=== PATIENT | female | born 1970 | race Caucasian/White ===

== ENCOUNTER → 2017-02-10 | Outpatient (CLI) | payer SELFPAY ==
--- NOTE | 2017-02-11 13:43 | MM ---
Reason for exam: screening (asymptomatic). Last mammogram was performed 5 years ago. Physical Findings: A clinical breast exam by your physician is recommended on an annual basis and results should be correlated with mammographic findings. MG Screening Mammo w CAD Bilateral CC and MLO view(s) were taken. Prior study comparison: February 20, 2012, bilateral digital screening mammo w/CAD. The breast tissue is heterogeneously dense. This may lower the sensitivity of mammography. No significant changes when compared with prior studies. ASSESSMENT: Negative, BI-RAD 1 RECOMMENDATION: Routine screening mammogram of both breasts in 1 year.
== END | disposition home or self-care (01) ==
LOC: RADMAMWWP 11:08
PROVIDERS: ATTEND Family Medicine
DX: Z12.31 Encounter for screening mammogram for malignant neoplasm of breast (principal)

== ENCOUNTER → 2017-12-04 | Outpatient (CLI) | payer OTHER ==
--- NOTE | 2017-12-04 15:29 | MR ---
EXAMINATION TYPE: MR tspine/lspine wo/w con DATE OF EXAM: 12/04/2017 2:20 PM COMPARISON: NONE Contrast: Gadavist 6.5 cc HISTORY: Compression of Brain, Congenital malformation, pain Multiplanar MultiSpin echo imaging of the thoracic spine was performed. Pre and post contrast enhanc ed images are obtained. Disc spaces: No evidence for herniation protrusion or significant degenerative disc disease. Spinal canal: No evidence for canal stenosis. No intrinsic or extrinsic lesion. Thoracic spinal cord: Thoracic spinal cord is of normal caliber and signal. Paraspinal soft tissues: No evidence for paraspinal mass. No destructive lesions seen. Vertebral segments: No evidence for fracture or bony lesion. No pathologic enhancement is identified. IMPRESSION: Negative study EXAMINATION TYPE: MR tspine/lspine wo/w con DATE OF EXAM: 12/04/2017 2:20 PM COMPARISON: NONE HISTORY: Compression of Brain, Congenital malformation, pain CONTRAST: The patient was injected with 6.5 mL intravenous Gadavist gadolinium contrast. Multiplanar, MultiSpin echo imaging of the lumbar spine was performed. L1-L2: Normal disc appearance without desiccation. No herniation, protrusion or disc bulging. No ca nal stenosis is present. Foramina are patent bilaterally. L2-L3: Normal disc appearance without desiccation. No herniation, protrusion or disc bulging. No ca nal stenosis is present. Foramina are patent bilaterally. L3-L4: Moderate disc desiccation is noted. There is circumferential disc bulge greatest posteriorly w ith effacement of the ventral thecal sac. Borderline to mild bilateral lateral recess stenosis. No ev idence for central stenosis. Bilateral foraminal encroachment. Mild facet joint arthropathy. L4-L5: Mild disc desiccation. Mild circumferential disc bulge greatest posteriorly. No evidence for l ateral recess stenosis or central stenosis. Mild bilateral foraminal encroachment. L4 hemangioma. L5-S1: Normal disc appearance without desiccation. No herniation, protrusion or disc bulging. No ca nal stenosis is present. Foramina are patent bilaterally. Lumbar segments are intact. No paraspinal masses are identified. Conus medullaris has a normal appe arance. IMPRESSION: 1. Degenerative disc disease as discussed. 2. Posterior disc bulging at L3-4 with bilateral lateral recess stenosis and bilateral foraminal encr oachment.
--- NOTE | 2017-12-04 15:36 | MR ---
EXAMINATION TYPE: MR brain wo con DATE OF EXAM: 12/04/2017 2:01 PM COMPARISON: NONE HISTORY: Compression of Brain,Congenital malformation Multiplanar and multispin-echo imaging of the brain was performed . The ventricles, basal cisterns and sulci overlying the cerebral convexities are within normal limits. There is no evidence for midline shift or mass effect. Acute intracranial hemorrhage or extra-axial collection is not evident. The brain parenchyma reveals no abnormal increased signal. No acute edema is identified. Low-lying cerebellar tonsils of 7 mm. Chiari type I malformation is not excluded. No evidence for hyd rocephalus. Mucosal thickening maxillary sinuses with small air-fluid level seen on the left may reflect acute si nusitis. Chronic ethmoidal sinusitis also noted. IMPRESSION: 1. Low-lying cerebellar tonsils without hydrocephalus. Chiari Type I malformation is not excluded. 2. Sinusitis.
== END | disposition home or self-care (01) ==
LOC: RADMRIMAIN 12:47
PROVIDERS: ATTEND Neurological Surgery
DX: G93.5 Compression of brain (principal); M48.061 Spinal stenosis, lumbar region without neurogenic claudication; M51.36 Other intervertebral disc degeneration, lumbar region; Q07.9 Congenital malformation of nervous system, unspecified
CPT/HCPCS: 70551; 72157; 72158; A9581

== ENCOUNTER → 2019-04-06 | Outpatient (CLI) | payer OTHER ==
[2019-04-06 13:55] LABS: Potassium 4.2 mmol/L (3.5-5.1)
[2019-04-06 13:56] LABS: Basophils % (A) 0 %; Eosinophils # (A) 0.2 k/uL (0-0.7); Eosinophils % (A) 3 %; HGB 13.4 gm/dL (11.4-16.0); Lymphocytes # (A) 1.9 k/uL (1.0-4.8); Lymphocytes % (A) 32 %; MCH 30.3 pg (25.0-35.0); MCHC 32.7 g/dL (31.0-37.0); MCV 92.7 fL (80.0-100.0); Mean Platelet Volume 9.3; Monocytes # (A) 0.3 k/uL (0-1.0); Monocytes % (A) 5 %; Neutrophils # (A) 3.4 k/uL (1.3-7.7); Neutrophils % (A) 59 %; Platelet Count 160 k/uL (150-450); RBC 4.42 m/uL (3.80-5.40); RDW 13.5 % (11.5-15.5); WBC 5.8 k/uL (3.8-10.6)
== END | disposition home or self-care (01) ==
LOC: LABPAT 12:48
PROVIDERS: ATTEND Orthopaedic Surgery
DX: Z01.818 Encounter for other preprocedural examination (principal); Z01.812 Encounter for preprocedural laboratory examination; M23.91 Unspecified internal derangement of right knee
CPT/HCPCS: 36415; 80051; 85025; 93005

== ENCOUNTER 2019-04-08 13:42 | Day surgery (SDC) | payer OTHER ==
[2019-04-07 12:36] VITALS: BMI 25.7
--- NOTE | 2019-04-07 16:26 | HP ---
HISTORY AND PHYSICAL DATE OF SURGERY: 04/08/2019 Gaby Monzon is a 48-year-old patient seen with progressive right knee pain. We discussed options. She elected to proceed with arthroscopy. Consent was obtained. PAST MEDICAL HISTORY: 1. Hyperlipidemia. 2. Chronic low back pain. PAST SURGICAL HISTORY: section. DAILY MEDICATIONS: 1. Fioricet. 2. Morphine. 3. Neurontin. 4. [place]. 5. Zocor. ALLERGIES: ASPIRIN, LYRICA. SOCIAL HISTORY: She smokes one pack of cigarettes daily. PHYSICAL EVALUATION OF THE RIGHT KNEE: Her range of motion is 0 to 130 degrees. Mild effusion. Tenderness, medial joint line. Positive medial Dipti's. Ligaments stable. Hip rotation without pain. Distal neurovascular exam intact. RADIOGRAPHS: Right knee radiographs reveal mild osteoarthritis. MRI of right knee: Medial meniscal tear. IMPRESSION: Internal derangement, right knee, with medial meniscal tear. PLAN: Right knee arthroscopy with partial meniscectomy and debridement. MMODL / IJN: [id number] /
[~2019-04-08 13:42] MED LIST: ceFAZolin IN SWFI 2 GM/20 ML SYRINGE IVP ONE
[2019-04-08] MEDS ORDERED: LIDOCAINE 1% 20 ML VIAL (10MG/ML) FOR IV START INTRADERMA ONE (14:30)
[2019-04-08] MEDS ORDERED: LACTATED RINGERS 1,000 ML IV ONE (14:32)
[2019-04-08] MEDS ORDERED: ONDANSETRON 4 MG/2 ML VIAL IVP ONE (14:33)
[2019-04-08] MEDS ORDERED: DEXAMETHASONE SOD PHOS (MDV) 100 MG/10 ML VIAL IVP ONE (14:33)
[2019-04-08] MEDS ORDERED: MIDAZOLAM 2 MG/2 ML VIAL ONE (14:41)
[2019-04-08] MEDS ORDERED: LIDOCAINE 1% INJ 10MG/ML (20 ML MDV) ONE (14:41)
[2019-04-08] MEDS ORDERED: fentaNYL (PF) 50 MCG/ML 2 ML AMP ONE (14:41)
[2019-04-08] MEDS ORDERED: PROPOFOL 10 MG/ML 20 ML VIAL IV ONE (14:41)
[2019-04-08] MEDS ORDERED: BUPIVACAIN-EPI 0.5%-1:200,000 30 ML VIAL INTRAARTIC ONE ×2 (15:07→15:11)
[2019-04-08 15:31] VITALS: TEMP 96.8
--- NOTE | 2019-04-08 15:37 | P.OP ---
Date of Procedure: 04/08/19 Preoperative Diagnosis: Internal derangement right knee Postoperative Diagnosis: 1. Tear medial meniscus right knee 2. Grade 2 chondromalacia medial femoral condyle right knee 3. Reactive synovitis medial and super patellar compartments right knee Procedure(s) Performed: 1. Arthroscopic partial medial meniscectomy right knee 2. Arthroscopic chondroplasty medial femoral condyle right knee 3. Arthroscopic partial synovectomy medial and suprapatellar compartments right knee Anesthesia: ROSASA, local Surgeon: Herson Solis Estimated Blood Loss (ml): 3 Pathology: none sent Condition: stable Disposition: PACU Indications for Procedure: 48-year-old patient seen with right knee pain. We discussed treatment options. She elected to proceed with arthroscopy. Consent was obtained. Operative Findings: see description of procedure Description of Procedure: Patient was taken to the operative suite. Patient underwent a general anesthetic by the department of anesthesia. Patient was given preoperative antibiotics. The right lower extremity was placed in a well-padded arthroscopic leg yuan. The right leg was prepped and draped in the normal sterile orthopedic fashion. A lateral parapatellar and suprapatellar incision was made. Trochars were inserted. Arthroscopy was initiated. Suprapatellar pouch revealed diffuse thick reactive synovitis. The patellofemoral joint appeared to articulate congruently. There was grade 1 chondromalacia of the patella with no significant osteochondral tears present. The scope was guided into the medial gutter. No loose body or plica were identified. The scope was then guided into the medial compartment. A medial parapatellar incision was made. Trocar inserted followed by probe. There was a radial tear posterior horn medial meniscus. There were grade 2 chondromalacia changes medial femoral condyle with some osteochondral flap tears. There was thick reactive synovitis anteriorly. I performed a partial medial meniscectomy down to stable tissue. I performed a chondroplasty of the medial femoral condyle down to stable tissue. I performed a partial synovectomy decompressing the reactive synovitis. The residual meniscus was stable. The osteochondral surface was stable. There was good decompression of synovitis. Scope and probe were then guided into the intercondylar notch. Cruciates were identified, probed and found to be stable. The scope and probe were then guided into lateral compartment. Lateral meniscus was stable. There was no chondromalacia. There was no synovitis. The scope was in guided back into the suprapatellar compartment. I introduced a motorized shaver into the super patellar compartment. I performed a partial synovectomy decompressing the reactive synovitis. The shaver was removed. I took one more look on the entire knee, no residual debris. Instruments were now removed from the joint. The joint was infiltrated with .25% Marcaine. Steri-Strips were applied to the portal sites. Sterile dressings were applied. The patient was placed into a ANDRESSA hose. No tourniquet was utilized. The patient was awakened, transferred to a bed and taken to recovery stable satisfactory condition.
[2019-04-08 15:40] VITALS: RESP 16
[2019-04-08 17:07] VITALS: BP 105/64; PULSE 64
== END 2019-04-08 17:19 | disposition home or self-care (01) ==
LOC: OR 13:42
PROVIDERS: ATTEND Orthopaedic Surgery
DX: M23.321 Other meniscus derangements, posterior horn of medial meniscus, right knee (principal); M94.261 Chondromalacia, right knee; M65.861 Other synovitis and tenosynovitis, right lower leg; J44.9 Chronic obstructive pulmonary disease, unspecified; F17.210 Nicotine dependence, cigarettes, uncomplicated; G89.29 Other chronic pain; M54.9 Dorsalgia, unspecified; G93.5 Compression of brain; G43.909 Migraine, unspecified, not intractable, without status migrainosus; E07.9 Disorder of thyroid, unspecified; I34.1 Nonrheumatic mitral (valve) prolapse; Z79.891 Long term (current) use of opiate analgesic; Z88.6 Allergy status to analgesic agent; Z88.8 Allergy status to other drugs, medicaments and biological substances; Z79.899 Other long term (current) drug therapy
CPT/HCPCS: 29881; J2250; J2405; J2001; J3010; J1100; J2704; J0690

== ENCOUNTER 2021-05-30 18:40 | Inpatient (IN) | payer MEDICARE, OTHER ==
[2021-05-30 19:32] LABS: Basophils # (A) 0.1 k/uL (0-0.2); Basophils % (A) 1 %; Eosinophils # (A) 0.2 k/uL (0-0.7); Eosinophils % (A) 4 %; HCT 43.6 % (34.0-46.0); HGB 13.2 gm/dL (11.4-16.0); Lymphocytes # (A) 2.4 k/uL (1.0-4.8); Lymphocytes % (A) 45 %; MCH 30.1 pg (25.0-35.0); MCHC 30.2 g/dL (31.0-37.0); MCV 99.7 fL (80.0-100.0); Mean Platelet Volume 9.1; Monocytes # (A) 0.3 k/uL (0-1.0); Monocytes % (A) 6 %; Neutrophils # (A) 2.2 k/uL (1.3-7.7); Neutrophils % (A) 41 %; Platelet Count 230 k/uL (150-450); RBC 4.37 m/uL (3.80-5.40); RDW 13.2 % (11.5-15.5); WBC 5.3 k/uL (3.8-10.6)
[2021-05-30 19:41] LABS: Amorphous Sediment,Urine Rare /hpf; Appearance,Urine Turbid (Clear); Bacteria,Urine Moderate /hpf; Bilirubin,Urine Negative (Negative); Blood,Urine Negative (Negative); Color,Urine Yellow; Glucose,Urine (UA) Negative (Negative); Ketones,Urine Trace (Negative); Leukocyte Esterase,Urine Moderate (Negative); Mucus,Urine Moderate /hpf; Nitrite,Urine Negative (Negative); Protein,Urine Trace (Negative); RBC,Urine 2 /hpf (0-5); Specific Gravity,Urine 1.025 (1.001-1.035); Squamous Epithelial Cell,Urine 7 /hpf (0-4); WBC,Urine 4 /hpf (0-5)
[2021-05-30 19:43] LABS: ALT 9 U/L (4-34); AST 18 U/L (14-36); African American GFR (CKD) >90 (>60 ml/min/1.73 sqM); Albumin 3.5 g/dL (3.5-5.0); Alkaline Phosphatase 86 U/L (38-126); Anion Gap 6 mmol/L; Blood Urea Nitrogen 9 mg/dL (7-17); Calcium 9.6 mg/dL (8.4-10.2); Carbon Dioxide 30 mmol/L (22-30); Chloride 105 mmol/L (98-107); Glucose 83 mg/dL (74-99); Lipase 88 U/L (23-300); Non-African American GFR(CKD) >90 (>60 ml/min/1.73 sqM); Potassium 4.4 mmol/L (3.5-5.1); Sodium 141 mmol/L (137-145); Total Bilirubin 0.2 mg/dL (0.2-1.3); Total Protein 6.2 g/dL (6.3-8.2)
[2021-05-30] MEDS ORDERED: NALOXONE 0.4 MG/ML 1 ML VIAL IV PRN (19:51)
--- NOTE | 2021-05-30 19:51 | ED ---
Abdominal Pain HPI - General Chief Complaint: Abdominal Pain Stated Complaint: Appendicitis Time Seen by Provider: 05/30/21 18:40 Source: patient Mode of arrival: ambulatory Limitations: no limitations - History of Present Illness Initial Comments: 50-year-old female with past medical history of chronic headaches and neck pain, COPD who presents to the emergency room with reported right lower quadrant abdominal pain. Reports that has been present for the past week. She has associated nausea without vomiting. No urinary or bowel complaints. Does admit to fevers. Saw her primary care physician who sent her to [facility] to have an outpatient CT. Reports that she was called earlier this evening and diagnosed with acute appendicitis. Instructed to go to her local emergency department. Admits to previous history of however no abdominal surgeries. No other alleviating, precipitating or modifying factors - Related Data Home Medications Medication Instructions Recorded Confirmed Gabapentin [Neurontin] 600 mg PO TID 04/07/19 05/30/21 Morphine Sulfate [Vilma] 30 mg PO Q12H 04/07/19 05/30/21 Amoxicillin/Potassium Clav 1 tab PO Q12HR 05/30/21 05/30/21 [Augmentin 875-125 Tablet] Hydrocodone/Acetaminophen [[place] 1 tab PO DAILY PRN 05/30/21 05/30/21 10-325] PARoxetine HCL [Paxil] 20 mg PO DAILY 05/30/21 05/30/21 Allergies Allergy/AdvReac Type Severity Reaction Status Date / Time aspirin Allergy Severe Swelling Verified 05/30/21 22:25 NSAIDS (Non-Steroidal Allergy Swelling Verified 05/30/21 22:25 Anti-Inflamma pregabalin [From Lyrica] Allergy Rash/Hives Verified 05/30/21 22:25 Review of Systems ROS Statement: Those systems with pertinent positive or pertinent negative responses have been documented in the HPI. ROS Other: All systems not noted in ROS Statement are negative. Past Medical History Past Medical History: COPD, Thyroid Disorder Additional Past Medical History / Comment(s): HEART MURMUR. CHRONIC NECK PAIN. Thyroid nodules. History of Any Multi-Drug Resistant Organisms: None Reported Past Surgical History: Section Past Anesthesia/Blood Transfusion Reactions: No Reported Reaction Past Psychological History: Depression Smoking Status: Current every day smoker Past Alcohol Use History: None Reported Past Drug Use History: None Reported - Past Family History Mother Family Medical History: Thyroid Disorder Additional Family Medical History / Comment(s): "borderline diabetic" General Exam Limitations: no limitations General appearance: alert, in no apparent distress Head exam: Present: atraumatic, normocephalic, normal inspection Eye exam: Present: normal appearance, PERRL, EOMI. Absent: scleral icterus, conjunctival injection, periorbital swelling ENT exam: Present: normal exam, mucous membranes moist Neck exam: Present: normal inspection. Absent: tenderness, meningismus, lymphadenopathy Respiratory exam: Present: normal lung sounds bilaterally. Absent: respiratory distress, wheezes, rales, rhonchi, stridor Cardiovascular Exam: Present: regular rate, normal rhythm, normal heart sounds. Absent: systolic murmur, diastolic murmur, rubs, gallop, clicks GI/Abdominal exam: Present: soft, tenderness (Right lower quadrant), normal bowel sounds. Absent: distended, guarding, rebound, rigid Extremities exam: Present: normal inspection, full ROM, normal capillary refill. Absent: tenderness, pedal edema, joint swelling, calf tenderness Back exam: Present: normal inspection Neurological exam: Present: alert, oriented X3, CN II-XII intact Psychiatric exam: Present: normal affect, normal mood Skin exam: Present: warm, dry, intact, normal color. Absent: rash Course Vital Signs 05/30/21 18:40 Temperature 98.5 F Pulse Rate 63 Respiratory 17 Rate Blood Pressure 97/62 O2 Sat by Pulse 100 Oximetry Medical Decision Making - Medical Decision Making Patient is placed in room 17. A thorough history and physical exam is performed. IV is established. Patient is offered something for pain control however refuses. I did get the CT results from [facility] which demonstrates that the patient has a dilated, 9 mm appendix with moderate adjacent inflammatory stranding compatible with acute appendicitis. I did consult with Dr. Fraire. Patient will be admitted and made nothing by mouth. Antibiotics initiated. Patient is currently awaiting a bed on the floor - Lab Data Result diagrams: 05/30/21 19:21 05/30/21 19: Lab Results 05/30/21 05/30/21 05/30/21 Range/Units 19:21 19:21 19:21 WBC 5.3 (3.8-10.6) k/uL RBC 4.37 (3.80-5.40) m/uL Hgb 13.2 (11.4-16.0) gm/dL Hct 43.6 (34.0-46.0) % MCV 99.7 (80.0-100.0) fL MCH 30.1 (25.0-35.0) pg MCHC 30.2 L (31.0-37.0) g/dL RDW 13.2 (11.5-15.5) % Plt Count 230 (150-450) k/uL MPV 9.1 Neutrophils % 41 % Lymphocytes % 45 % Monocytes % 6 % Eosinophils % 4 % Basophils % 1 % Neutrophils # 2.2 (1.3-7.7) k/uL Lymphocytes # 2.4 (1.0-4.8) k/uL Monocytes # 0.3 (0-1.0) k/uL Eosinophils # 0.2 (0-0.7) k/uL Basophils # 0.1 (0-0.2) k/uL Sodium 141 (137-145) mmol/L Potassium 4.4 (3.5-5.1) mmol/L Chloride 105 (98-107) mmol/L Carbon Dioxide 30 (22-30) mmol/L Anion Gap 6 mmol/L BUN 9 (7-17) mg/dL Creatinine 0.68 (0.52-1.04) mg/dL Est GFR (CKD-EPI)AfAm >90 (>60 ml/min/1.73 sqM) Est GFR (CKD-EPI)NonAf >90 (>60 ml/min/1.73 sqM) Glucose 83 (74-99) mg/dL Plasma Lactic Acid [place] (0.7-2.0) mmol/L Calcium 9.6 (8.4-10.2) mg/dL Total Bilirubin 0.2 (0.2-1.3) mg/dL AST 18 (14-36) U/L ALT 9 (4-34) U/L Alkaline Phosphatase 86 (38-126) U/L Total Protein 6.2 L (6.3-8.2) g/dL Albumin 3.5 (3.5-5.0) g/dL Lipase 88 (23-300) U/L Urine Color Yellow Urine Appearance Turbid H (Clear) Urine pH 7.0 (5.0-8.0) Ur Specific [place] 1.025 (1.001-1.035) Urine Protein Trace H (Negative) Urine Glucose (UA) Negative (Negative) Urine Ketones Trace H (Negative) Urine Blood Negative (Negative) Urine Nitrite Negative (Negative) Urine Bilirubin Negative (Negative) Urine Urobilinogen 3.0 (<2.0) mg/dL Ur Leukocyte Esterase Moderate H (Negative) Urine RBC 2 (0-5) /hpf Urine WBC 4 (0-5) /hpf Ur Squamous Epith Cells 7 H (0-4) /hpf Amorphous Sediment Rare H (None) /hpf Urine Bacteria Moderate H (None) /hpf Urine Mucus Moderate H (None) /hpf 05/30/21 Range/Units 19:21 WBC (3.8-10.6) k/uL RBC (3.80-5.40) m/uL Hgb (11.4-16.0) gm/dL Hct (34.0-46.0) % MCV (80.0-100.0) fL MCH (25.0-35.0) pg MCHC (31.0-37.0) g/dL RDW (11.5-15.5) % Plt Count (150-450) k/uL MPV Neutrophils % % Lymphocytes % % Monocytes % % Eosinophils % % Basophils % % Neutrophils # (1.3-7.7) k/uL Lymphocytes # (1.0-4.8) k/uL Monocytes # (0-1.0) k/uL Eosinophils # (0-0.7) k/uL Basophils # (0-0.2) k/uL Sodium (137-145) mmol/L Potassium (3.5-5.1) mmol/L Chloride (98-107) mmol/L Carbon Dioxide (22-30) mmol/L Anion Gap mmol/L BUN (7-17) mg/dL Creatinine (0.52-1.04) mg/dL Est GFR (CKD-EPI)AfAm (>60 ml/min/1.73 sqM) Est GFR (CKD-EPI)NonAf (>60 ml/min/1.73 sqM) Glucose (74-99) mg/dL Plasma Lactic Acid [place] 0.9 (0.7-2.0) mmol/L Calcium (8.4-10.2) mg/dL Total Bilirubin (0.2-1.3) mg/dL AST (14-36) U/L ALT (4-34) U/L Alkaline Phosphatase (38-126) U/L Total Protein (6.3-8.2) g/dL Albumin (3.5-5.0) g/dL Lipase (23-300) U/L Urine Color Urine Appearance (Clear) Urine pH (5.0-8.0) Ur Specific [place] (1.001-1.035) Urine Protein (Negative) Urine Glucose (UA) (Negative) Urine Ketones (Negative) Urine Blood (Negative) Urine Nitrite (Negative) Urine Bilirubin (Negative) Urine Urobilinogen (<2.0) mg/dL Ur Leukocyte Esterase (Negative) Urine RBC (0-5) /hpf Urine WBC (0-5) /hpf Ur Squamous Epith Cells (0-4) /hpf Amorphous Sediment (None) /hpf Urine Bacteria (None) /hpf Urine Mucus (None) /hpf Disposition Clinical Impression: Acute appendicitis Disposition: ADMITTED IP TO THIS [facility] Condition: Stable Is patient prescribed a controlled substance at d/c from ED?: No Decision to Admit Reason: Admit from EC Decision Date: 05/30/21 Decision Time: 19:51
[2021-05-30] MEDS ORDERED: PIPERACILLIN-TAZOBACTAM 3.375 GM in SODIUM CHLORIDE 0.9% 100 ML IVPB STA (19:53)
[2021-05-30] MEDS: MORPHINE SULFATE ER 30 MG TABLET PO SCH (20:19)
[2021-05-30] MEDS: SODIUM CHLORIDE 0.9% 1,000 ML IV SCH (20:45)
--- NOTE | 2021-05-30 20:52 | XR ---
EXAMINATION TYPE: XR chest 2V DATE OF EXAM: 05/30/2021 COMPARISON: 03/30/2015 HISTORY: Preop TECHNIQUE: 2 views FINDINGS: Heart and mediastinum are normal. The lungs are clear of infiltrate. There is mild pulmonar y hyperinflation. Bony thorax is intact. There are no hilar masses. There is some minimal linear dens ity at the left lung base. IMPRESSION: COPD. Mild scarring or subsegmental atelectasis at the left lung base. No change.
[2021-05-30] MEDS: GABAPENTIN 300 MG CAP PO SCH (22:20)
[2021-05-31] MEDS: PIPERACILLIN-TAZOBACTAM 3.375 GM in SODIUM CHLORIDE 0.9% 100 ML IVPB SCH ×3 (03:20→20:51)
[2021-05-31 05:21] LABS: African American GFR (CKD) >90 (>60 ml/min/1.73 sqM); Anion Gap 2 mmol/L; Blood Urea Nitrogen 7 mg/dL (7-17); Calcium 8.8 mg/dL (8.4-10.2); Carbon Dioxide 27 mmol/L (22-30); Chloride 110 mmol/L (98-107); Glucose 89 mg/dL (74-99); Non-African American GFR(CKD) >90 (>60 ml/min/1.73 sqM); Sodium 139 mmol/L (137-145)
[2021-05-31 05:33] LABS: Basophils % (A) 1 %; Eosinophils # (A) 0.2 k/uL (0-0.7); Eosinophils % (A) 3 %; HCT 35.5 % (34.0-46.0); HGB 11.3 gm/dL (11.4-16.0); Lymphocytes # (A) 2.2 k/uL (1.0-4.8); Lymphocytes % (A) 45 %; MCHC 31.8 g/dL (31.0-37.0); MCV 100.7 fL (80.0-100.0); Mean Platelet Volume 9.2; Monocytes # (A) 0.3 k/uL (0-1.0); Monocytes % (A) 7 %; Neutrophils % (A) 42 %; Platelet Count 188 k/uL (150-450); RBC 3.53 m/uL (3.80-5.40); RDW 13.3 % (11.5-15.5); WBC 4.8 k/uL (3.8-10.6)
[2021-05-31] MEDS: MORPHINE SULFATE ER 30 MG TABLET PO SCH ×2 (09:04→20:50)
[2021-05-31] MEDS: NICOTINE 21MG/24HR PATCH TRANSDERM SCH (09:04)
[2021-05-31] MEDS: PARoxetine 20 MG TAB PO SCH (09:04)
[2021-05-31] MEDS: GABAPENTIN 300 MG CAP PO SCH ×3 (09:05→20:50)
[2021-05-31] MEDS ORDERED: ONDANSETRON 4 MG/2 ML VIAL IVP PRN (10:36)
--- NOTE | 2021-05-31 10:36 | P.GSHP ---
History of Present Illness H&P Date: 05/31/21 CHIEF COMPLAINT: Abdominal pain HISTORY OF PRESENT ILLNESS: This is a 50-year-old female with a known history of COPD, chronic neck pain, nicotine dependence and 3 C-sections. She also reports having a surgical procedure on her uterus. Patient presents to the emergency room after being informed that her outpatient computed tomography scan had shown evidence of an acute appendicitis. She has complaints of right lower quadrant pain that is sharp and his been present for about a week and a half. She initially had thought they were gas pains. She does admit to have nausea with no vomiting. She reports having fevers at home as high as 102. Patient had outpatient CT done this through [facility] ordered by her primary care physician. Results per ER report head that showed a dilated 9 mm appendix with moderate adjacent inflammatory stranding compatible with acute appendicitis. PAST MEDICAL HISTORY: See list. PAST SURGICAL HISTORY: See list. MEDICATIONS: See list. ALLERGIES: See list. SOCIAL HISTORY: No illicit drug use. REVIEW OF SYSTEMS: CONSTITUTIONAL: Denies fever or chills. HEENT: Denies blurred vision, vision changes, or eye pain. Denies hemoptysis ENDOCRINE: Denies heat or cold intolerance. CARDIOVASCULAR: Denies chest pain or pressure. RESPIRATORY: No shortness of breath. GASTROINTESTINAL: Please refer to HPI NEURO: Denies history of seizures. PSYCH: No depression or suicidal ideation HEMATOLOGIC: Denies bleeding disorders. LYMPHATIC: The patient denies any lumps and bumps around the neck. GENITOURINARY: Denies any blood in urine or increased urinary frequency. MUSCULOSKELETAL: Denies myalgias. Denies joint swelling. Denies decreased range of motion beyond patients baseline. SKIN: Denies pruitis. Denies rash. PHYSICAL EXAM: VITAL SIGNS: Reviewed GENERAL: Well-developed in no acute distress. HEENT: No sclera icterus. Extraocular movements grossly intact. Moist buccal mucosa. Head is atraumatic, normocephalic. Hears conversational speech. No nasal drainage. NECK: Supple without lymphadenopathy. CHEST: Non-labored respirations and equal bilateral excursions. CARDIOVASCULAR: Palpable 2+ radial pulses. ABDOMEN: Soft. Nondistended. Right lower quadrant tenderness MUSCULOSKELETAL: No clubbing or cyanosis. NEUROLOGIC: No focal or lateralizing signs. Cranial nerves II through XII grossly intact. PSYCH: Appropriate affect. Alert and oriented to person, place and time. SKIN: Well perfused. Good skin turgor. LABORATORY DATA: WBC 4.8 hemoglobin 11.3 platelets 188 sodium 139 potassium 4.0 creatinine 0.70 lactic 0.9 LFTs normal Lipase normal Urinalysis with contamination squamous epithelial cells present IMAGING: Chest x-ray shows COPD. Mild scarring or subsegmental atelectasis at left lung base. No change ASSESSMENT: 1. Acute appendicitis 2. History of COPD 3. Nicotine dependence 4. History of C-sections PLAN: -Patient scheduled for robotic appendectomy today, 05/31/[address] Fraire -Keep patient nothing by mouth -Continue antibiotics -Continue pain medication as needed -Add nicotine patch -Continue antiemetics Physician Electromatic Typist note has been reviewed by physician. Signing provider agrees with the documented findings, assessment, and plan of care. Past Medical History Past Medical History: COPD, Thyroid Disorder Additional Past Medical History / Comment(s): HEART MURMUR. CHRONIC NECK PAIN. Thyroid nodules. History of Any Multi-Drug Resistant Organisms: None Reported Past Surgical History: Section Additional Past Surgical History / Comment(s): Knee sx Past Anesthesia/Blood Transfusion Reactions: No Reported Reaction Past Psychological History: Depression Smoking Status: Current every day smoker Past Alcohol Use History: None Reported Past Drug Use History: None Reported - Past Family History Mother Family Medical History: Thyroid Disorder Additional Family Medical History / Comment(s): "borderline diabetic" Medications and Allergies Home Medications Medication Instructions Recorded Confirmed Type Gabapentin [Neurontin] 600 mg PO TID 04/07/19 05/30/21 History Morphine Sulfate [Vilma] 30 mg PO Q12H 04/07/19 05/30/21 History Amoxicillin/Potassium Clav 1 tab PO Q12HR 05/30/21 05/30/21 History [Augmentin 875-125 Tablet] Hydrocodone/Acetaminophen [[place] 1 tab PO DAILY PRN 05/30/21 05/30/21 History 10-325] PARoxetine HCL [Paxil] 20 mg PO DAILY 05/30/21 05/30/21 History Allergies Allergy/AdvReac Type Severity Reaction Status Date / Time aspirin Allergy Severe Swelling Verified 05/30/21 22:25 NSAIDS (Non-Steroidal Allergy Swelling Verified 05/30/21 22:25 Anti-Inflamma pregabalin [From Lyrica] Allergy Rash/Hives Verified 05/30/21 22:25 Surgical - Exam Vital Signs Temp Pulse Resp BP Pulse Ox 98.5 F 63 17 97/62 100 05/30/21 18:40 05/30/21 18:40 05/30/21 18:40 05/30/21 18:40 05/30/21 18:40 Results - Labs 05/31/21 04:51 05/31/21 04:51 Abnormal Lab Results - Last 24 Hours (Table) 05/30/21 05/30/21 05/30/21 Range/Units 19:21 19:21 19:21 RBC (3.80-5.40) m/uL Hgb (11.4-16.0) gm/dL MCV (80.0-100.0) fL MCHC 30.2 L (31.0-37.0) g/dL Chloride (98-107) mmol/L Total Protein 6.2 L (6.3-8.2) g/dL Urine Appearance Turbid H (Clear) Urine Protein Trace H (Negative) Urine Ketones Trace H (Negative) Ur Leukocyte Esterase Moderate H (Negative) Ur Squamous Epith Cells 7 H (0-4) /hpf Amorphous Sediment Rare H (None) /hpf Urine Bacteria Moderate H (None) /hpf Urine Mucus Moderate H (None) /hpf 05/31/21 05/31/21 Range/Units 04:51 04:51 RBC 3.53 L (3.80-5.40) m/uL Hgb 11.3 L (11.4-16.0) gm/dL MCV 100.7 H (80.0-100.0) fL MCHC (31.0-37.0) g/dL Chloride 110 H (98-107) mmol/L Total Protein (6.3-8.2) g/dL Urine Appearance (Clear) Urine Protein (Negative) Urine Ketones (Negative) Ur Leukocyte Esterase (Negative) Ur Squamous Epith Cells (0-4) /hpf Amorphous Sediment (None) /hpf Urine Bacteria (None) /hpf Urine Mucus (None) /hpf Diabetes panel 05/30/21 05/31/21 Range/Units 19:21 04:51 Sodium 141 139 (137-145) mmol/L Potassium 4.4 4.0 (3.5-5.1) mmol/L Chloride 105 110 H (98-107) mmol/L Carbon Dioxide 30 27 (22-30) mmol/L BUN 9 7 (7-17) mg/dL Creatinine 0.68 0.70 (0.52-1.04) mg/dL Glucose 83 89 (74-99) mg/dL Calcium 9.6 8.8 (8.4-10.2) mg/dL AST 18 (14-36) U/L ALT 9 (4-34) U/L Alkaline Phosphatase 86 (38-126) U/L Total Protein 6.2 L (6.3-8.2) g/dL Albumin 3.5 (3.5-5.0) g/dL Calcium panel 05/30/21 05/31/21 Range/Units 19: 04:51 Calcium 9.6 8.8 (8.4-10.2) mg/dL Albumin 3.5 (3.5-5.0) g/dL Pituitary panel 05/30/21 05/31/21 Range/Units 19: 04:51 Sodium 141 139 (137-145) mmol/L Potassium 4.4 4.0 (3.5-5.1) mmol/L Chloride 105 110 H (98-107) mmol/L Carbon Dioxide 30 27 (22-30) mmol/L BUN 9 7 (7-17) mg/dL Creatinine 0.68 0.70 (0.52-1.04) mg/dL Glucose 83 89 (74-99) mg/dL Calcium 9.6 8.8 (8.4-10.2) mg/dL Adrenal panel 05/30/21 05/31/21 Range/Units 19: 04:51 Sodium 141 139 (137-145) mmol/L Potassium 4.4 4.0 (3.5-5.1) mmol/L Chloride 105 110 H (98-107) mmol/L Carbon Dioxide 30 27 (22-30) mmol/L BUN 9 7 (7-17) mg/dL Creatinine 0.68 0.70 (0.52-1.04) mg/dL Glucose 83 89 (74-99) mg/dL Calcium 9.6 8.8 (8.4-10.2) mg/dL Total Bilirubin 0.2 (0.2-1.3) mg/dL AST 18 (14-36) U/L ALT 9 (4-34) U/L Alkaline Phosphatase 86 (38-126) U/L Total Protein 6.2 L (6.3-8.2) g/dL Albumin 3.5 (3.5-5.0) g/dL
--- NOTE | 2021-05-31 11:30 | P.HPADDEND ---
H&P Addendum H&P Addendum Date: 05/31/21 Patient seen and evaluated. Benefits and risks of robotic appendectomy described. Patient reports over 1 week history of abdominal pain and similar episodes in the past. Outside computed tomography scan as discussion with ER provider confirmed acute appendicitis. Patient at risk for perforation for length of symptoms. This was also reviewed. Continue antibiotics. Will proceed with robotic appendectomy.
[2021-05-31] MEDS ORDERED: MORPHINE SULFATE 4 MG/ML SYRINGE IVP PRN (11:50)
[2021-05-31] MEDS ORDERED: SODIUM CHLORIDE 0.9% 1,000 ML IV ONE (11:58)
[2021-05-31] MEDS ORDERED: IV FLUID CONTINUATION 850 ML IV ONE (12:16)
[2021-05-31] MEDS ORDERED: DEXAMETHASONE SOD PHOSPHATE 4 MG/ML 1 ML VIAL IV ONE (12:29)
[2021-05-31] MEDS ORDERED: MIDAZOLAM 2 MG/2 ML VIAL IV ONE (12:38)
[2021-05-31] MEDS ORDERED: NEOSTIGMINE 1 MG/ML 10 ML VIAL ONE (13:13)
[2021-05-31] MEDS ORDERED: HYDROmorphone (PF) 1 MG/ML ONE (13:13)
[2021-05-31] MEDS ORDERED: LIDOCAINE 1% INJ 10MG/ML (20 ML MDV) ONE (13:13)
[2021-05-31] MEDS ORDERED: fentaNYL (PF) 50 MCG/ML 2 ML AMP ONE (13:13)
[2021-05-31] MEDS ORDERED: ePHEDrine SULFATE/0.9% NACL/PF 50 MG/5 ML SYRINGE IV ONE (13:13)
[2021-05-31] MEDS ORDERED: SODIUM CHLORIDE 0.9% 100 ML BAG ONE (13:13)
[2021-05-31] MEDS ORDERED: PROPOFOL 10 MG/ML 20 ML VIAL IV ONE (13:13)
[2021-05-31] MEDS ORDERED: GLYCOPYRROLATE 0.2 MG/ML 2 ML VIAL ONE (13:13)
[2021-05-31] MEDS ORDERED: SUCCINYLCHOLINE CHLORIDE 100 MG/5 ML SYR IV ONE (13:13)
[2021-05-31] MEDS ORDERED: LIDOCAINE 0.5%-EPI 1:200,000 50 ML VIAL SQ ONE (13:33)
[2021-05-31] MEDS ORDERED: LACTATED RINGERS 1,000 ML IV ONE (14:19)
[2021-05-31] MEDS ORDERED: NALOXONE 0.4 MG/ML 1 ML VIAL IV PRN (14:24)
--- NOTE | 2021-05-31 14:25 | P.OP ---
Date of Procedure: 05/31/21 Description of Procedure: SURGEON: RADHA FALCON MD Preoperative Diagnosis: 1. Acute appendicitis 2. Chronic lower back pain 3. Tobacco abuse disorder 4. Depressive disorder 5. Chronic obstructive pulmonary disease 6. History of thyroid nodules Postoperative Diagnosis: 1. Gangrenous ruptured appendicitis with appendiceal abscess with phlegmon 2. Chronic lower back pain 3. Tobacco abuse disorder 4. Depressive disorder 5. Chronic obstructive pulmonary disease 6. History of thyroid nodules 7. Peritoneal adhesions, pelvis and right lower quadrant Procedure(s) Performed: 1. Robotic-assisted daVinci Xi laparoscopic lysis of adhesions over 1 hr 2. Robotic-assisted daVinci Xi laparoscopic appendectomy Anesthesia: GETA, local Estimated Blood Loss (ml): 10 Pathology: other (appendix, aerobic and anerobic culture of peritoneal fluid from peritonitis) Condition: stable Disposition: floor Operative Findings: 1. Localized abscess over 5-mL drained right lower quadrant 2. Gangrenous ruptured appendicitis including tip of appendix 3. Staple line hemostatic 4. Adhesions along the lower midline from prior surgery and phlegmon of right lower quadrant due to perforated appendicitis identified. INDICATIONS: The patient is a 50-year-old female who presents with acute appendi citis and symptoms over 10 days. Surgical intervention was described in detail. Patient requested robotic-assisted technique. Benefits and risks, including infection, open surgery, and possibility for additional surgery was discussed at length. Informed consent was obtained. All questions of the patient and family were answered. DESCRIPTION: The patient was transferred to the operating room and placed in supine position. The patient had previously voided. The abdomen was then prepped and draped in standard sterile fashion as Ioban was placed along the abdomen to minimize any contamination of skin floor. After a timeout protocol was performed, attention was then brought to the left upper quadrant whereby a 0 degree 5 mm laparoscopic trocar entry was performed. The abdominal cavity was entered and insufflated to 15 mmHg pressure, which was tolerated well. Diagnostic laparoscopy demonstrated no injury to bowel, viscera or mesentery. Adhesions were confirmed of the right lower quadrant of omentum, small bowel to the abdominal wall. Omental adhesions were found along the midline lower pelvis. Next a robotic 12-mm trocar was placed along the left upper quadrant after exchanging the 5 mm trocar. A 8 mm port was placed along the left lower quadrant and another 8-mm port left lateral abdominal wall. Ports were placed 10 cm apart from each other including 15-20 cm away from the target anatomy of the right pelvis. The patient was then placed in Trendelenburg position, at least 7 and right side up at least 7. The robotic da Joey XI system was primed and docked from the left side of the patient. Using atraumatic graspers and vessel sealer, the robotic system was docked and primed as described. Instruments were interchanged by the preschool teacher assistant including graspers, robotic stapler and vessel sealer. Next, attention was brought to identify the cecum. A systematic view within the abdominal cavity was started with the small bowel which was remarkable for localized phlegmon. The base of the cecum was unremarkable. The appendix was at the tip of the appendix with moderate dissection performed. The abscess of 5-mL was aspirated from the abdomen. Extensive lysis of adhesions over 30 minutes was used to dissect the appendix from surrounding tissues. Blue 45 mm robotic staple loads were fired along the base of the appendix. The staple line was hemostatic and viable. Hemostasis was checked prior to undocking the robot. The abdomen was irrigated with less than 150 mL normal saline and suctioned until completely dry. The pelvis was dried using 4 x 4's. The robot was undocked. I re-scrubbed into the case. The specimen was removed from the abdominal cavity with an Endo Catch bag through the 12 mm trocar at the left upper quadrant. All instruments and pneumoperitoneum were evacuated from the abdominal cavity. Local anesthetic was infiltrated to all wounds for postop analgesia. All incisions were also cleansed with diluted hydrogen peroxide. An Optifoam surgical dressing was placed along the left upper quadrant incision. The patient had tolerated the procedure well. The patient was extubated successfully. The patient was transferred to the postanesthesia care unit in stable condition.
[2021-05-31] MEDS ORDERED: KETOROLAC 15 MG/ML 1 ML VIAL ONE (15:00)
[2021-05-31] MEDS ORDERED: KETOROLAC 15 MG/ML 1 ML VIAL IVP ONE (15:02)
--- NOTE | 2021-05-31 15:31 | P.CONS ---
History of Present Illness - Reason for Consult Acute appendicitis - History of Present Illness Patient is pleasant 50-year-old male came with the right lower quadrant abdominal pain patient was seen as an outpatient for this abdominal pain patient has right lower quadrant severe abdominal been going on for [address] of the abdomen was obtained in [facility] which was ordered by primary care physician patient is found to have dilated 9 mm appendix with moderate inflammatory stranding compatible with acute hepatitis patient was having abdominal pain when I evaluated the patient. Patient denied any fever chills. Patient was having some nausea and vomiting as well. His urinalysis is consi stent with contaminated urine sample with us, epithelial cells patient doesn't have any symptoms of UTI. REVIEW OF SYSTEMS: CONSTITUTIONAL: No fever, no malaise, no fatigue. HEENT: No recent visual problems or hearing problems. Denied any sore throat. CARDIOVASCULAR: No chest pain, orthopnea, PND, no palpitations, no syncope. PULMONARY: No shortness of breath, no cough, no hemoptysis. GASTROINTESTINAL: Mentioned in HPI. NEUROLOGICAL: No headaches, no weakness, no numbness. HEMATOLOGICAL: Denies any bleeding or petechiae. GENITOURINARY: Denies any burning micturition, frequency, or urgency. MUSCULOSKELETAL/RHEUMATOLOGICAL: Denies any joint pain, swelling, or any muscle pain. ENDOCRINE: Denies any polyuria or polydipsia. The rest of the 14-point review of systems is negative. PHYSICAL EXAMINATION: GENERAL: The patient is alert and oriented x3, not in any acute distress. Well developed, well nourished. HEENT: Pupils are round and equally reacting to light. EOMI. No scleral icterus. No conjunctival pallor. Normocephalic, atraumatic. No pharyngeal erythema. No thyromegaly. CARDIOVASCULAR: S1 and S2 present. No murmurs, rubs, or gallops. PULMONARY: Chest is clear to auscultation, no wheezing or crackles. ABDOMEN: Soft, right lower quadrant abdominal tenderness, nondistended, normoactive bowel sounds. No palpable organomegaly. MUSCULOSKELETAL: No joint swelling or deformity. EXTREMITIES: No cyanosis, clubbing, or pedal edema. NEUROLOGICAL: Gross neurological examination did not reveal any focal deficits. SKIN: No rashes. Assessment and plan -Acute appendicitis: Patient will undergo appendectomy today patient is present and Zosyn which is appropriate. Patient will continued on IV fluids and will order morphine for breakthrough pain patient is on oral morphine at home which was reordered radiosurgery -Hypothyroidism -Depression -Continue nicotine use: Counseling was provided nicotine patch was ordered -COPD without any acute exacerbation -For above-mentioned chronic problems patient will be resumed on appropriate home medications possibly of surgery. DVT prophylaxis: As per primary service Past Medical History Past Medical History: COPD, Thyroid Disorder Additional Past Medical History / Comment(s): HEART MURMUR. CHRONIC NECK PAIN. Thyroid nodules. History of Any Multi-Drug Resistant Organisms: None Reported Past Surgical History: Section Additional Past Surgical History / Comment(s): Knee sx Past Anesthesia/Blood Transfusion Reactions: No Reported Reaction Past Psychological History: Depression Smoking Status: Current every day smoker Past Alcohol Use History: None Reported Past Drug Use History: None Reported - Past Family History Mother Family Medical History: Thyroid Disorder Additional Family Medical History / Comment(s): "borderline diabetic" Medications and Allergies Home Medications Medication Instructions Recorded Confirmed Type Gabapentin [Neurontin] 600 mg PO TID 04/07/19 05/30/21 History Morphine Sulfate [Vilma] 30 mg PO Q12H 04/07/19 05/30/21 History Amoxicillin/Potassium Clav 1 tab PO Q12HR 05/30/21 05/30/21 History [Augmentin 875-125 Tablet] Hydrocodone/Acetaminophen [[place] 1 tab PO DAILY PRN 05/30/21 05/30/21 History 10-325] PARoxetine HCL [Paxil] 20 mg PO DAILY 05/30/21 05/30/21 History Allergies Allergy/AdvReac Type Severity Reaction Status Date / Time aspirin Allergy Severe Swelling Verified 05/31/21 12:16 NSAIDS (Non-Steroidal Allergy Swelling Verified 05/31/21 12:16 Anti-Inflamma pregabalin [From Lyrica] Allergy Rash/Hives Verified 05/31/21 12:16 Physical Exam Vitals: Vital Signs Temp Pulse Pulse Pulse Resp BP BP 05/31/21 15:13 56 L 16 124/59 05/31/21 14:58 58 L 16 134/70 05/31/21 14:42 59 L 16 119/65 05/31/21 14:27 97.2 F L 77 18 119/59 05/31/21 12:48 47 L 16 95/56 05/31/21 12:22 98.0 F 50 L 18 114/63 05/31/21 08:35 97.5 F L 52 L 16 107/67 05/31/21 01:11 97.6 F 50 L 16 97/60 05/30/21 21:15 50 L 16 05/30/21 20:56 97.9 F 50 L 16 96/58 05/30/21 20:45 65 16 97/55 05/30/21 18:40 98.5 F 63 17 97/62 Pulse Ox 05/31/21 15:13 97 05/31/21 14:58 97 05/31/21 14:42 94 L 05/31/21 14:27 98 05/31/21 12:48 94 L 05/31/21 12:22 93 L 05/31/21 08:35 98 05/31/21 01:11 97 05/30/21 21:15 05/30/21 20:56 98 05/30/21 20:45 100 05/30/21 18:40 100 Intake and Output 05/31/21 05/31/21 05/31/21 06:59 14:59 22:59 Intake Total 1000 150 Output Total 560 Balance 440 150 Intake: IV 1000 150 Output: Urine 550 Estimated Blood Loss 10 Other: # Voids 1 Results CBC & Chem 7: 05/31/21 04:51 05/31/21 04:51 Labs: Abnormal Lab Results - Last 24 Hours (Table) 05/30/21 05/30/21 05/30/21 Range/Units 19:21 19:21 19:21 RBC (3.80-5.40) m/uL Hgb (11.4-16.0) gm/dL MCV (80.0-100.0) fL MCHC 30.2 L (31.0-37.0) g/dL Chloride (98-107) mmol/L Total Protein 6.2 L (6.3-8.2) g/dL Urine Appearance Turbid H (Clear) Urine Protein Trace H (Negative) Urine Ketones Trace H (Negative) Ur Leukocyte Esterase Moderate H (Negative) Ur Squamous Epith Cells 7 H (0-4) /hpf Amorphous Sediment Rare H (None) /hpf Urine Bacteria Moderate H (None) /hpf Urine Mucus Moderate H (None) /hpf 05/31/21 05/31/21 Range/Units 04:51 04:51 RBC 3.53 L (3.80-5.40) m/uL Hgb 11.3 L (11.4-16.0) gm/dL MCV 100.7 H (80.0-100.0) fL MCHC (31.0-37.0) g/dL Chloride 110 H (98-107) mmol/L Total Protein (6.3-8.2) g/dL Urine Appearance (Clear) Urine Protein (Negative) Urine Ketones (Negative) Ur Leukocyte Esterase (Negative) Ur Squamous Epith Cells (0-4) /hpf Amorphous Sediment (None) /hpf Urine Bacteria (None) /hpf Urine Mucus (None) /hpf
[2021-05-31] MEDS: HYDROcodone/APAP 10-325MG 1 EACH TAB PO PRN (18:17)
[2021-05-31] MEDS: SODIUM CHLORIDE 0.9% 1,000 ML IV SCH (20:50)
[2021-06-01] MEDS: ACETAMINOPHEN TAB 325 MG TAB PO PRN (02:32)
[2021-06-01] MEDS: PIPERACILLIN-TAZOBACTAM 3.375 GM in SODIUM CHLORIDE 0.9% 100 ML IVPB SCH ×3 (04:35→19:47)
[2021-06-01] MEDS ORDERED: HEPARIN SODIUM,PORCINE/PF 5,000 UNIT/0.5 ML SYRINGE SQ PRN (07:00)
[2021-06-01] MEDS: NICOTINE 21MG/24HR PATCH TRANSDERM SCH (08:24)
[2021-06-01] MEDS: MORPHINE SULFATE ER 30 MG TABLET PO SCH ×2 (08:24→20:55)
[2021-06-01] MEDS: PARoxetine 20 MG TAB PO SCH (08:24)
[2021-06-01] MEDS: GABAPENTIN 300 MG CAP PO SCH ×3 (08:25→20:56)
--- NOTE | 2021-06-01 10:39 | P.PN ---
Subjective Progress Note Date: 06/01/21 HPI: She reports improvement of her abdominal pain. She is ambulating. Findings of her surgery reviewed including ruptured appendicitis with abscess drained. Her pain is controlled. She is afebrile ROS: No fevers or chills. No shortness of breath. No chest pain ABDOMEN: Inicisions intact. No peritonitis. LABS: WBC today pending, yesterday, normal less than 8.0 MICROBIOLOGY: Pending ASSESSMENT: 1. Ruptured appendicitis with abscess, localized PLAN: 1. IV antibiotics continued 2. Pending microbiology results to tailor oral antibiotic management 3. Nicotine patch for tobacco cessation 4. Anticipated postoperative course reviewed including at least 1 week recovery Objective - Vital Signs Vital signs: Vital Signs Temp 97.9 F 06/01/21 08:10 Pulse 55 L 06/01/21 08:10 Resp 16 06/01/21 08:10 BP 132/80 06/01/21 08:10 Pulse Ox 96 06/01/21 08:10 Intake & Output 05/31/21 06/01/21 06/01/21 18:59 06:59 18:59 Intake Total 1390 Output Total 560 350 Balance 830 -350 Intake: IV 1150 Oral 240 Output: Urine 550 350 Estimated Blood Loss 10 Other: # Voids 1 - Labs CBC & Chem 7: 05/31/21 04:51 05/31/21 04:51 Labs: Microbiology - Last 24 Hours (Table) 05/31/21 14:19 Gram Stain - Preliminary Appendix Wound Culture - Preliminary 05/31/21 14:19 Anaerobic Culture - Preliminary Appendix 05/30/21 19:55 Blood Culture - Preliminary Blood No Growth after 24 hours Assessment and Plan (1) Acute appendicitis with rupture Current Visit: Yes Status: Acute Code(s): K35.32 - ACUTE APPENDICITIS WITH PERF AND LOC PERITONITIS, W/O ABSCS SNOMED Code(s): 64201833 (2) Acute appendicitis with appendiceal abscess Current Visit: Yes Status: Acute Code(s): K35.33 - ACUTE APPENDICITIS WITH PERF AND LOC PERITONITIS, WITH ABSCS SNOMED Code(s): 885166011 (3) Tobacco abuse Current Visit: Yes Status: Acute Code(s): Z72.0 - TOBACCO USE SNOMED Code(s): 454329005 (4) Chronic pain Current Visit: Yes Status: Acute Code(s): G89.29 - OTHER CHRONIC PAIN SNOMED Code(s): 29160821
[2021-06-01 10:59] LABS: Basophils % (A) 0 %; Eosinophils % (A) 0 %; HCT 36.8 % (34.0-46.0); HGB 11.9 gm/dL (11.4-16.0); Lymphocytes # (A) 1.7 k/uL (1.0-4.8); Lymphocytes % (A) 18 %; MCH 31.7 pg (25.0-35.0); MCHC 32.3 g/dL (31.0-37.0); MCV 98.3 fL (80.0-100.0); Mean Platelet Volume 9.3; Monocytes # (A) 0.6 k/uL (0-1.0); Monocytes % (A) 6 %; Neutrophils # (A) 6.9 k/uL (1.3-7.7); Neutrophils % (A) 74 %; Platelet Count 226 k/uL (150-450); RBC 3.75 m/uL (3.80-5.40); RDW 12.7 % (11.5-15.5); WBC 9.3 k/uL (3.8-10.6)
[2021-06-01] MEDS: metroNIDAZOLE-NS PMX 500 MG in SALINE 1 100ML.BAG IVPB SCH ×2 (12:11→19:48)
[2021-06-01] MEDS: HYDROcodone/APAP 10-325MG 1 EACH TAB PO PRN (14:11)
--- NOTE | 2021-06-01 14:31 | P.PN ---
Subjective Patient is pleasant 50-year-old male came with the right lower quadrant abdominal pain patient was seen as an outpatient for this abdominal pain patient has right lower quadrant severe abdominal been going on for [address] of the abdomen was obtained in [facility] which was ordered by primary care physician patient is found to have dilated 9 mm appendix with moderate inflammatory stranding compatible with acute hepatitis patient was having abdominal pain when I evaluated the patient. Patient denied any fever chills. Patient was having some nausea and vomiting as well. His urinalysis is consistent with contaminated urine sample with us, epithelial cells patient doesn't have any symptoms of UTI. 06/01/2021 Patient is on Zosyn and metronidazole as per general surgery. Patient had appendicitis patient had an appendicular abscess with rupture because of which and medics are being continued at this time patient is a bowel sounds and facet gas didn't was burping. Didn't move her bowel yet. Constitutional: Denied any fatigue denied any fever. Cardio vascular: denied any chest pain, palpitations Gastrointestinal denied any nausea vomiting Pulmonary: Denied any shortness of breath cough Neurologic denied any new focal deficits All inpatient medications were reviewed and appropriate changes in these medications as dictated in the interval history and assessment and plan. PHYSICAL EXAMINATION: GENERAL: The patient is alert and oriented x3, not in any acute distress. Well developed, well nourished. HEENT: Pupils are round and equally reacting to light. EOMI. No scleral icterus. No conjunctival pallor. Normocephalic, atraumatic. No pharyngeal erythema. No thyromegaly. CARDIOVASCULAR: S1 and S2 present. No murmurs, rubs, or gallops. PULMONARY: Chest is clear to auscultation, no wheezing or crackles. ABDOMEN: Soft, right lower quadrant abdominal tenderness, nondistended, normoactive bowel sounds. No palpable organomegaly. Surgical site areas appear to be clean MUSCULOSKELETAL: No joint swelling or deformity. EXTREMITIES: No cyanosis, clubbing, or pedal edema. NEUROLOGICAL: Gross neurological examination did not reveal any focal deficits. SKIN: No rashes. Assessment and plan -Acute appendicitis: Status post appendectomy, patient is on Zosyn as well as metronidazole and is on IV fluids pain is well controlled at this time -Hypothyroidism -Depression -Continue nicotine use: Counseling was provided nicotine patch was ordered -COPD without any acute exacerbation -For above-mentioned chronic problems patient was resumed on appropriate home medications. DVT prophylaxis: As per primary service Objective - Vital Signs Vital signs: Vital Signs Temp 97.6 F 06/01/21 14:10 Pulse 60 06/01/21 14:10 Resp 16 06/01/21 14:10 BP 101/58 06/01/21 14:10 Pulse Ox 95 06/01/21 14:10 Intake & Output 05/31/21 06/01/21 06/01/21 18:59 06:59 18:59 Intake Total 1390 Output Total 560 350 Balance 830 -350 Intake: IV 1150 Oral 240 Output: Urine 550 350 Estimated Blood Loss 10 Other: # Voids 1 - Labs CBC & Chem 7: 06/01/21 10:45 05/31/21 04:51 Labs: Abnormal Lab Results - Last 24 Hours (Table) 06/01/21 Range/Units 10:45 RBC 3.75 L (3.80-5.40) m/uL Microbiology - Last 24 Hours (Table) 05/31/21 14:19 Gram Stain - Preliminary Appendix Wound Culture - Preliminary 05/31/21 14:19 Anaerobic Culture - Preliminary Appendix 05/30/21 19:55 Blood Culture - Preliminary Blood No Growth after 24 hours
[2021-06-01] MEDS: SODIUM CHLORIDE 0.9% 1,000 ML IV SCH (18:13)
[2021-06-02] MEDS: ACETAMINOPHEN TAB 325 MG TAB PO PRN ×2 (01:33→22:31)
[2021-06-02] MEDS: metroNIDAZOLE-NS PMX 500 MG in SALINE 1 100ML.BAG IVPB SCH ×3 (03:57→19:25)
[2021-06-02] MEDS: PIPERACILLIN-TAZOBACTAM 3.375 GM in SODIUM CHLORIDE 0.9% 100 ML IVPB SCH ×3 (03:57→19:28)
[2021-06-02] MEDS: NICOTINE 21MG/24HR PATCH TRANSDERM SCH (08:11)
[2021-06-02] MEDS: GABAPENTIN 300 MG CAP PO SCH ×3 (08:11→21:29)
[2021-06-02] MEDS: PARoxetine 20 MG TAB PO SCH (08:12)
[2021-06-02] MEDS: MORPHINE SULFATE ER 30 MG TABLET PO SCH ×2 (08:12→20:16)
[2021-06-02] MEDS: SODIUM CHLORIDE 0.9% 1,000 ML IV SCH ×2 (08:14→16:40)
--- NOTE | 2021-06-02 12:11 | P.PN ---
Progress Note - Text Progress Note Date: 06/02/21 Patient feels well. She denies a significant pain. On exam her vital signs are stable. Abdomen soft. Status post appendicitis and laparoscopic appendectomy. Patient will receive IV antibiotics
[2021-06-02] MEDS: HYDROcodone/APAP 10-325MG 1 EACH TAB PO PRN (14:17)
[2021-06-02] MEDS: ALBUTEROL NEBULIZED 2.5 MG/3 ML INHALATION SCH ×2 (16:27→22:41)
--- NOTE | 2021-06-02 18:07 | P.PN ---
Subjective Patient is pleasant 50-year-old male came with the right lower quadrant abdominal pain patient was seen as an outpatient for this abdominal pain patient has right lower quadrant severe abdominal been going on for [address] of the abdomen was obtained in [facility] which was ordered by primary care physician patient is found to have dilated 9 mm appendix with moderate inflammatory stranding compatible with acute hepatitis patient was having abdominal pain when I evaluated the patient. Patient denied any fever chills. Patient was having some nausea and vomiting as well. His urinalysis is consistent with contaminated urine sample with us, epithelial cells patient doesn't have any symptoms of UTI. 06/01/2021 Patient is on Zosyn and metronidazole as per general surgery. Patient had appendicitis patient had an appendicular abscess with rupture because of which and medics are being continued at this time patient is a bowel sounds and facet gas didn't was burping. Didn't move her bowel yet. 06/02/2021 Patient is clinically doing well but is passing gas only mildly still has sluggish bowel sounds did not move her bowel yet patient has been ablating in hallways not requiring Dilaudid often Constitutional: Denied any fatigue denied any fever. Cardio vascular: denied any chest pain, palpitations Gastrointestinal denied any nausea vomiting Pulmonary: Denied any shortness of breath cough Neurologic denied any new focal deficits All inpatient medications were reviewed and appropriate changes in these medications as dictated in the interval history and assessment and plan. PHYSICAL EXAMINATION: GENERAL: The patient is alert and oriented x3, not in any acute distress. Well developed, well nourished. HEENT: Pupils are round and equally reacting to light. EOMI. No scleral icterus. No conjunctival pallor. Normocephalic, atraumatic. No pharyngeal erythema. No thyromegaly. CARDIOVASCULAR: S1 and S2 present. No murmurs, rubs, or gallops. PULMONARY: Chest is clear to auscultation, no wheezing or crackles. ABDOMEN: Soft, right lower quadrant abdominal tenderness, nondistended, sluggish bowel sounds. No palpable organomegaly. Surgical site areas appear to be clean MUSCULOSKELETAL: No joint swelling or deformity. EXTREMITIES: No cyanosis, clubbing, or pedal edema. NEUROLOGICAL: Gross neurological examination did not reveal any focal deficits. SKIN: No rashes. Assessment and plan -Acute appendicitis: Status post appendectomy, patient is on Zosyn as well as metronidazole and pain is well controlled at this time. I discontinued IV fluids -Hypothyroidism -Depression -Continue nicotine use: Counseling was provided nicotine patch was ordered -COPD without any acute exacerbation -For above-mentioned chronic problems patient was resumed on appropriate home medications. DVT prophylaxis: As per primary service Objective - Vital Signs Vital signs: Vital Signs Temp 98.3 F 06/02/21 14:00 Pulse 60 06/02/21 16:38 Resp 16 06/02/21 14:00 BP 126/74 06/02/21 14:00 Pulse Ox 94 L 06/02/21 14:00 Intake & Output 06/01/21 06/02/21 06/02/21 18:59 06:59 18:59 Intake Total 350 210 Balance 350 210 Intake: Oral 350 210 Other: # Voids 2 1 3 - Labs CBC & Chem 7: 06/01/21 10:45 05/31/21 04:51 Labs: Microbiology - Last 24 Hours (Table) 05/30/21 19:55 Blood Culture - Preliminary Blood No Growth after 48 hours 05/31/21 14:19 Gram Stain - Preliminary Appendix Wound Culture - Preliminary Gram Neg Bacilli
[2021-06-02] MEDS: BUDESONIDE 0.5 MG/2 ML NEBU INHALATION SCH (22:41)
[2021-06-03] MEDS: PIPERACILLIN-TAZOBACTAM 3.375 GM in SODIUM CHLORIDE 0.9% 100 ML IVPB SCH ×3 (03:22→20:02)
[2021-06-03] MEDS: metroNIDAZOLE-NS PMX 500 MG in SALINE 1 100ML.BAG IVPB SCH ×3 (03:22→19:58)
[2021-06-03] MEDS: NICOTINE 21MG/24HR PATCH TRANSDERM SCH (08:17)
[2021-06-03] MEDS: MORPHINE SULFATE ER 30 MG TABLET PO SCH ×2 (08:17→20:07)
[2021-06-03] MEDS: PARoxetine 20 MG TAB PO SCH (08:17)
[2021-06-03] MEDS: GABAPENTIN 300 MG CAP PO SCH ×3 (08:18→21:15)
[2021-06-03] MEDS: BUDESONIDE 0.5 MG/2 ML NEBU INHALATION SCH ×2 (08:25→20:26)
[2021-06-03] MEDS: ALBUTEROL NEBULIZED 2.5 MG/3 ML INHALATION SCH ×4 (08:25→20:26)
--- NOTE | 2021-06-03 10:45 | P.PN ---
Progress Note - Text Progress Note Date: 06/03/21 Patient is doing well. She has minimal amounts of pain. On exam vitals are stable. Abdomen soft. Status post acute appendicitis. Patient received IV antibiotic.
--- NOTE | 2021-06-03 11:45 | P.PN ---
Subjective Patient is pleasant 50-year-old male came with the right lower quadrant abdominal pain patient was seen as an outpatient for this abdominal pain patient has right lower quadrant severe abdominal been going on for [address] of the abdomen was obtained in [facility] which was ordered by primary care physician patient is found to have dilated 9 mm appendix with moderate inflammatory stranding compatible with acute hepatitis patient was having abdominal pain when I evaluated the patient. Patient denied any fever chills. Patient was having some nausea and vomiting as well. His urinalysis is consistent with contaminated urine sample with us, epithelial cells patient doesn't have any symptoms of UTI. 06/01/2021 Patient is on Zosyn and metronidazole as per general surgery. Patient had appendicitis patient had an appendicular abscess with rupture because of which and medics are being continued at this time patient is a bowel sounds and facet gas didn't was burping. Didn't move her bowel yet. 06/02/2021 Patient is clinically doing well but is passing gas only mildly still has sluggish bowel sounds did not move her bowel yet patient has been ablating in hallways not requiring Dilaudid often 06/03/2021 Patient is clinically doing well at this time did move her bowel abdominal pain improved possibly of discharge tomorrow Constitutional: Denied any fatigue denied any fever. Cardio vascular: denied any chest pain, palpitations Gastrointestinal denied any nausea vomiting Pulmonary: Denied any shortness of breath cough Neurologic denied any new focal deficits All inpatient medications were reviewed and appropriate changes in these medications as dictated in the interval history and assessment and plan. PHYSICAL EXAMINATION: GENERAL: The patient is alert and oriented x3, not in any acute distress. Well developed, well nourished. HEENT: Pupils are round and equally reacting to light. EOMI. No scleral icterus. No conjunctival pallor. Normocephalic, atraumatic. No pharyngeal erythema. No thyromegaly. CARDIOVASCULAR: S1 and S2 present. No murmurs, rubs, or gallops. PULMONARY: Chest is clear to auscultation, no wheezing or crackles. ABDOMEN: Soft, right lower quadrant abdominal tenderness, nondistended, sluggish bowel sounds. No palpable organomegaly. Surgical site areas appear to be clean MUSCULOSKELETAL: No joint swelling or deformity. EXTREMITIES: No cyanosis, clubbing, or pedal edema. NEUROLOGICAL: Gross neurological examination did not reveal any focal deficits. SKIN: No rashes. Assessment and plan -Acute appendicitis: Status post appendectomy, patient is on Zosyn as well as metronidazole and pain is well controlled at this time. Doing well possibly of discharge tomorrow -Hypothyroidism -Depression -Continue nicotine use: Counseling was provided nicotine patch was ordered -COPD without any acute exacerbation -For above-mentioned chronic problems patient was resumed on appropriate home medications. DVT prophylaxis: As per primary service Objective - Vital Signs Vital signs: Vital Signs Temp 97.8 F 06/03/21 08:00 Pulse 54 L 06/03/21 08:40 Resp 18 06/03/21 08:00 BP 149/76 06/03/21 08:00 Pulse Ox 94 L 06/03/21 08:27 Intake & Output 06/02/21 06/03/21 06/03/21 18:59 06:59 18:59 Other: # Voids 2 1 # Bowel Movements 1 - Labs CBC & Chem 7: 06/01/21 10:45 05/31/21 04:51 Labs: Microbiology - Last 24 Hours (Table) 05/31/21 14:19 Anaerobic Culture - Preliminary Appendix 05/30/21 19:55 Blood Culture - Preliminary Blood No Growth after 72 hours 05/31/21 14:19 Gram Stain - Final Appendix Wound Culture - Final Escherichia coli
[2021-06-03] MEDS: HYDROcodone/APAP 10-325MG 1 EACH TAB PO PRN (14:29)
[2021-06-03 16:54] VITALS: RESP 16
[2021-06-03] MEDS: SODIUM CHLORIDE 0.9% 1,000 ML IV SCH (20:00)
[2021-06-04] MEDS: PIPERACILLIN-TAZOBACTAM 3.375 GM in SODIUM CHLORIDE 0.9% 100 ML IVPB SCH (03:23)
[2021-06-04] MEDS: metroNIDAZOLE-NS PMX 500 MG in SALINE 1 100ML.BAG IVPB SCH (03:23)
[2021-06-04] MEDS: ALBUTEROL NEBULIZED 2.5 MG/3 ML INHALATION SCH ×2 (07:39→11:29)
[2021-06-04] MEDS: BUDESONIDE 0.5 MG/2 ML NEBU INHALATION SCH (07:39)
[2021-06-04] MEDS: PARoxetine 20 MG TAB PO SCH (08:43)
[2021-06-04] MEDS: NICOTINE 21MG/24HR PATCH TRANSDERM SCH (08:43)
[2021-06-04] MEDS: MORPHINE SULFATE ER 30 MG TABLET PO SCH (08:43)
[2021-06-04] MEDS: GABAPENTIN 300 MG CAP PO SCH (08:43)
[2021-06-04 08:46] VITALS: BP 132/76; TEMP 97.6
[2021-06-04 11:39] VITALS: PULSE 67
[2021-06-04 11:42] LABS: Basophils % (A) 0 %; Eosinophils # (A) 0.2 k/uL (0-0.7); Eosinophils % (A) 3 %; HCT 38.1 % (34.0-46.0); HGB 12.5 gm/dL (11.4-16.0); Lymphocytes # (A) 1.3 k/uL (1.0-4.8); Lymphocytes % (A) 19 %; MCH 32.1 pg (25.0-35.0); MCHC 32.8 g/dL (31.0-37.0); MCV 97.9 fL (80.0-100.0); Mean Platelet Volume 8.5; Monocytes # (A) 0.4 k/uL (0-1.0); Monocytes % (A) 6 %; Neutrophils # (A) 4.8 k/uL (1.3-7.7); Neutrophils % (A) 71 %; Platelet Count 266 k/uL (150-450); RBC 3.89 m/uL (3.80-5.40); RDW 12.7 % (11.5-15.5); WBC 6.8 k/uL (3.8-10.6)
--- NOTE | 2021-06-04 12:25 | P.DS ---
Providers Date of admission: 05/31/21 14:24 Expected date of discharge: 06/04/21 Attending physician: Richelle Fraire Consults: 05/30/21 20:04 Consult Physician Urgent Consulting Provider: Rose Jones Consult Reason/Comments: medical management Do you want consulting provider notified?: Yes Primary care physician: Deep Rodriguez Hospital Course: Discharge diagnosis 1. Gangrenous ruptured appendicitis with appendiceal abscess with phlegmon status post Robotic-assisted daVinci Xi laparoscopic lysis of adhesions over 1 hr and Robotic-assisted daVinci Xi laparoscopic appendectomy 2. Chronic lower back pain 3. Tobacco abuse disorder. Educated patient on smoking cessation 4. Depressive disorder 5. Chronic obstructive pulmonary disease 6. History of thyroid nodules 7. Peritoneal adhesions, pelvis and right lower quadrant Hospital course This is a 50-year-old female with a known history of COPD, chronic neck pain, nicotine dependence and 3 C-sections. She also reports having a surgical procedure on her uterus. Patient presents to the emergency room after being informed that her outpatient computed tomography scan had shown evidence of an acute appendicitis. She has complaints of right lower quadrant pain that is sharp and his been present for about a week and a half. She initially had thought they were gas pains. She does admit to have nausea with no vomiting. She reports having fevers at home as high as 102. Patient had outpatient CT done this through [facility] ordered by her primary care physician. Results per ER report read that showed a dilated 9 mm appendix with moderate adjacent inflammatory stranding compatible with acute appendicitis. Patient is status post robotic-assisted laparoscopic appendectomy with lysis of adhesions for a gangrenous ruptured appendicitis with appendiceal abscess with phlegmon. Patient tolerated surgery well. Her pain is controlled. She is tolerating diet. Denies any nausea or vomiting. She is having bowel movements and flatus. Culture results from surgery did grow E. coli. She'll be discharged with antibiotic. Patient is afebrile. She is up and ambulating. She is stable for discharge. Physician Classroom Instructor note has been reviewed by physician. Signing provider agrees with the documented findings, assessment, and plan of care. Patient Condition at Discharge: Stable Plan - Discharge Summary Discharge Rx Participant: Yes New Discharge Prescriptions: New Amoxicillin/Potassium Clav [Augmentin 875-125 Tablet] 1 tab PO Q12HR 1 Days #20 tab Nicotine 21Mg/24Hr Patch [Habitrol] 1 patch TRANSDERM DAILY #14 patch Continue Morphine Sulfate [Vilma] 30 mg PO Q12H Gabapentin [Neurontin] 600 mg PO TID Hydrocodone/Acetaminophen [Rawson 10-325] 1 tab PO DAILY PRN PRN Reason: Pain PARoxetine HCL [Paxil] 20 mg PO DAILY Discontinued Amoxicillin/Potassium Clav [Augmentin 875-125 Tablet] 1 tab PO Q12HR Discharge Medication List Gabapentin [Neurontin] 600 mg PO TID 04/07/19 [History] Morphine Sulfate [Vilma] 30 mg PO Q12H 04/07/19 [History] Hydrocodone/Acetaminophen [Rawson 10-325] 1 tab PO DAILY PRN 05/30/21 [History] PARoxetine HCL [Paxil] 20 mg PO DAILY 05/30/21 [History] Amoxicillin/Potassium Clav [Augmentin 875-125 Tablet] 1 tab PO Q12HR 1 Days #20 tab 06/04/21 [Rx] Nicotine 21Mg/24Hr Patch [Habitrol] 1 patch TRANSDERM DAILY #14 patch 06/04/21 [Rx] Follow up Appointment(s)/Referral(s): Deep Rodriguez MD [Primary Care Provider] - 1-2 days Richelle Fraire MD [STAFF PHYSICIAN] - 06/07/21 Activity/Diet/Wound Care/Special Instructions: Continue narcotics as prescribed per patient's physician No lifting over 4 pounds in 4 weeks until Jun 28. You May shower. No bath tub soaks for two weeks until Jun 14 Recommend Smoking cessation Discharge Disposition: HOME SELF-CARE
== END 2021-06-04 13:01 | disposition home or self-care (01) | DRG 337 ==
LOC: EC 18:40 → 6PED 19:51 → OBSVTOIN 05-31 14:24 → 6NMEDSUR 05-31 20:07 → 6PED 05-31 20:07
PROVIDERS: ADMIT Surgery Plastic and Reconstructive Surgery; ATTEND Surgery Plastic and Reconstructive Surgery
PROC: 0DNW4ZZ Release Peritoneum, Percutaneous Endoscopic Approach (ICD-10-PCS; principal; 2021-05-31 12:15)
PROC: 0DTJ4ZZ Resection of Appendix, Percutaneous Endoscopic Approach (ICD-10-PCS; principal; 2021-05-31 12:15)
PROC: 8E0W4CZ Robotic Assisted Procedure of Trunk Region, Percutaneous Endoscopic Approach (ICD-10-PCS; principal; 2021-05-31 12:15)
DX: K35.33 Acute appendicitis with perforation, localized peritonitis, and gangrene, with abscess (principal); K66.0 Peritoneal adhesions (postprocedural) (postinfection); E03.9 Hypothyroidism, unspecified; F32.9 Major depressive disorder, single episode, unspecified; G89.29 Other chronic pain; J44.9 Chronic obstructive pulmonary disease, unspecified; F17.210 Nicotine dependence, cigarettes, uncomplicated; Z71.6 Tobacco abuse counseling; Z79.899 Other long term (current) drug therapy; Z98.891 History of uterine scar from previous surgery; M54.2 Cervicalgia; M54.5 Low back pain; Z98.890 Other specified postprocedural states; E04.1 Nontoxic single thyroid nodule; Z83.3 Family history of diabetes mellitus
CPT/HCPCS: 36415; 71046; 80048; 80053; 81001; 83605; 83690; 85025; 87040; 87070; 87075; 87077; 87186; 87205; 88304; 93005; 94640; 94760; 96374; 99285